=== PATIENT | female | born 1960 | race Hispanic/Latino ===

== ENCOUNTER 2018-06-04 16:55 | Emergency (ER) | payer BC, OTHER ==
[2018-06-04 17:28] LABS: Bilirubin Negative (Negative); Blood, Urine Small (Negative); Clarity Clear (Clear); Glucose, Urine (Dipstick) Negative (Negative); Leukocyte Negative (Negative); Nitrite Negative (Negative); Protein, Urine (Dipstick) 30 mg/dL (Neg-Trace); Specific Gravity, Urine 1.025 (1.005-1.030); Urobilinogen 0.2 mg/dL (0.2-1.0)
[2018-06-04 17:38] LABS: Bacteria/HPF 1+ HPF (None Seen); Squamous Epithelial 0-3 HPF (0-3); WBC/HPF 0-3 HPF (0-3)
[2018-06-04] MEDS ORDERED: HYDROcodone/Acetaminophen 5/325 mg Tablet ONE (19:28)
--- NOTE | 2018-06-04 19:33 | CT ---
CT ABDOMEN AND PELVIS WITHOUT CONTRAST 06/04/18 Multiple axial tomograms obtained through the abdomen and pelvis without IV enhancement. INDICATIONS: Abdominal pain. Hematuria. Lung bases clear. The liver, spleen, and pancreas unremarkable. There is a peripherally calcified gallstone in the neck of the gallbladder measuring up to 1.5 cm. No evidence of pericholecystic edema. Adrenal glands are normal. Kidneys unremarkable. No evidence of urinary calculus or hydronephrosis. Small bowel loops appear normal. Appendix is normal. Colon unremarkable. Urinary bladder is contacted . Images through the pelvis show evidence of hysterectomy. IMPRESSION: 1. Cholelithiasis. 2. Otherwise no acute abdominal process identified. POS: [facility]
== END 2018-06-04 19:38 | disposition home or self-care (01) ==
LOC: SCSER 16:55
DX: K80.20 Calculus of gallbladder without cholecystitis without obstruction (principal); R31.9 Hematuria, unspecified
CPT/HCPCS: 74176; 81003; 81015